=== PATIENT | male | born 1975 | race Caucasian/White ===

== ENCOUNTER 2017-08-15 00:50 | Emergency (ER) | END 2017-08-15 04:16 | disposition home or self-care (01) ==

== ENCOUNTER 2018-01-19 12:56 | Emergency (ER) | END 2018-01-19 18:52 | disposition home or self-care (01) ==

== ENCOUNTER 2018-06-09 18:11 | Emergency (ER) | payer MEDICAID ==
[~2018-06-09] VITALS: Ht 175.3 cm; Wt 82.5 kg
[~2018-06-09 18:11] MED LIST: CEPH-443 PO; CLIN300C10 PO; DOXY100T20 PO; HYDR-4011 PO; IBUP-1542 PO
[2018-06-09 18:25] VITALS: Ht 175.3 cm; Wt 82.5 kg
[2018-06-09] MEDS ORDERED: CIPR500T4 PO (19:56)
[2018-06-09] MEDS ORDERED: IBUP-1542 PO (19:56)
[2018-06-09] MEDS ORDERED: ACET1TAB40 PO (19:56)
--- NOTE | 2018-06-09 19:59 | ERD ---
ER Documentation Chief Complaint Chief Complaint SWOLLEN LT TESTI, BLOOD IN URINE, PAIN HPI 43-year-old male presents with pain and swelling in his left testicle worsening over the last 4 days. Denies any dysuria or penile discharge. He has had a scant amount of blood in urine without was in the past. Denies any fevers, vomiting, flank pain, abdominal pain. Denies any history of trauma. Patient has minor concerns of STD. ROS All systems reviewed and are negative except as per history of present illness. Medications Home Meds Active Scripts Acetaminophen with Codeine (Acetaminophen-Cod #3 Tablet) 1 Each Tablet, 1 TAB PO Q6H PRN for PAIN, #10 TAB Prov:CORBY UMANZOR MD 06/09/18 Ibuprofen* (Motrin*) 600 Mg Tab, 600 MG PO Q6, #20 TAB Prov:CORBY UMANZOR MD 06/09/18 Ciprofloxacin Hcl* (Ciprofloxacin Hcl*) 500 Mg Tablet, 500 MG PO BID for 10 D ays, TAB Prov:CORBY UMANZOR MD 06/09/18 Cephalexin* (Keflex*) 500 Mg Capsule, 500 MG PO QID for 7 Days, CAP Prov:UDAY CASTANEDA PA-C 01/19/18 Doxycycline Hyclate* (Doxycycline Hyclate*) 100 Mg Tablet.dr, 100 MG PO BID for 10 Days, #20 TAB Prov:UDAY CASTANEDA PA-C 01/19/18 Hydrocodone/Acetaminophen ([place] 5-325 Tablet) 1 Each Tablet, 1 TAB PO Q6H PRN for SEVERE PAIN LEVEL 7-10, #20 TAB Prov:GERA ARMSTRONG NP 08/15/17 Ibuprofen* (Motrin*) 600 Mg Tab, 600 MG PO Q6H PRN for PAIN AND OR ELEVATED TEMP, #30 TAB Prov:GERA ARMSTRONG NP 08/15/17 Clindamycin Hcl* (Clindamycin Hcl*) 300 Mg Capsule, 300 MG PO TID for 10 Days, CAP Prov:GERA ARMSTRONG NP 08/15/17 Allergies Allergies: Coded Allergies: No Known Allergy (Unverified , 08/15/17) PMhx/Soc Medical and Surgical Hx: pt denies Medical Hx History of Surgery: Yes (jaw surgery 15 yrs ago,hemorrhoidectomy) Hx Alcohol Use: Yes (ocassional) Hx Substance Use: Yes (meth, marijuana) Hx Tobacco Use: No Smoking Status: Current every day smoker FmHx Family History: No diabetes, No coronary disease, No other Physical Exam Vitals Vital Signs Date Temp Pulse Resp B/P (MAP) Pulse Ox O2 O2 Flow FiO2 Time Delivery Rate 06/09/18 99.0 134 18 166/107 98 18:25 (126) Physical Exam Const: No acute distress Head: Atraumatic Eyes: Normal Conjunctiva ENT: Normal External Ears, Nose and Mouth. Neck: Full range of motion. No meningismus. Resp: Clear to auscultation bilaterally Cardio: Regular rate and rhythm, no murmurs Abd: Soft, non tender, non distended. Normal bowel sounds. No penile discharge. Significant enlarged left epididymis and left testicle. No erythema, warmth, hernia appreciated. Skin: No petechiae or rashes Back: No midline or flank tenderness Ext: No cyanosis, or edema Neur: Awake and alert Psych: Normal Mood and Affect Results 24 hrs Current Medications Medications Dose Sig/Jaime Start Time Status Last (Trade) Ordered Route PRN Stop Time Admin Dose Reason Admin Ibuprofen 600 mg ONCE ONCE 06/09/18 06/09/18 (Motrin) PO 20:00 19:44 06/09/18 20:01 Ceftriaxone 1 gm ONCE ONCE 06/09/18 06/09/18 Sodium IM 20:00 19:44 (Rocephin) 06/09/18 20:01 1,000 mg ONCE ONCE 06/09/18 06/09/18 Azithromycin PO 20:00 19:44 (Zithromax) 06/09/18 20:01 Departure Diagnosis: Primary Impression: Epididymitis Condition: Stable Patient Instructions: Epididymitis Referrals: ARLENE MUÑOZ MD Additional Instructions: Recheck for worsening pain, redness, new worsening symptoms. See primary doctor and urology for further evaluation. May need authorization from primary doctor for specialist visit. CORBY UMANZOR MD Jun 09, 2018 19:59
[2018-06-09] MEDS ORDERED: CEFTRIAXONE 1 GM INJ IM ONE (20:00)
[2018-06-09] MEDS ORDERED: AZITHROMYCIN 500 MG TAB PO ONE (20:00)
[2018-06-09] MEDS ORDERED: IBUPROFEN 600 MG TAB PO ONE (20:00)
[2018-06-09 21:52] VITALS: BP 138/95; PULSE 105; RESP 18
== END 2018-06-09 21:54 | disposition home or self-care (01) ==
LOC: FTE 18:11
DX: N45.1 Epididymitis (principal); F17.200 Nicotine dependence, unspecified, uncomplicated
CPT/HCPCS: 76870; 81001; 87086; 96372; J0696; Z7502; Z7610